=== PATIENT | male | born 1975 | race Caucasian/White ===

== ENCOUNTER 2018-05-31 06:45 | Emergency (ER) | payer SELFPAY ==
[2018-05-31 06:46] VITALS: BP 152/108; PULSE 72; RESP 24; TEMP 36.4; O2SAT 98; BMI 40.9
--- NOTE | 2018-05-31 08:27 | ED.VIS.GEN ---
History of Present Illness Chief Complaint: Numb/Ting Informant: Patient Onset: Weeks - 1 Context: Gradual Onset Timing: Continuous Quality: tingling/numb Location: BLE, worse on right Current Severity: Moderate Maximum Severity: Moderate Worsened by: nothing Relieved by: nothing Associated Symptoms: RLE weakness, cramped-up muscles yesterday w/ spasm temporarily Narrative: no back pain. no hx IVDU. no fevers. BP up, sometmes feels flushed; supposed to be on BP med, but stopped it sev mos ago. has the med at home. - Past Medical History (1) H/O gastric bypass Status: Chronic (2) HTN (hypertension) Status: Chronic Past Medical History - Allergies and Home Meds Allergies/Adverse Reactions: Allergies No Known Allergies Allergy (Verified 05/31/18 06:48) Primary Care Physician: NOT,DEFINED [NON-STAFF] - Smoking Status: Never smoker Review of Systems All systems negative except as indicated Genitourinary: Reports: - - low uop x several mos -- often goes 1x daily. no urinary retention sx. no bowel dysfunction. Musculoskeletal: Denies: Neck pain, Back pain Neurological: Reports: Weakness - RLE only, Parasthesia, Numbness - worst lateral prox right thigh, - - no sx in BUE or face. no speech issues.. Denies: Headache Endocrine: Denies: Polyuria, Polydipsia Physical Exam Vital Signs/Narrative: Vital Signs Temp Pulse Resp BP Pulse Ox 05/31/18 06:46 97.6 F L 72 24 H 152/108 H 98 General: Well nourished, Well developed Head: Normocephalic, Atraumatic Eyes: Perrl, EOMI ENT: Moist mucous membranes, No rhinorrhea Neck: Supple, Nontender Cardiovascular: Regular rate, Regular rhythm, No murmurs Respiratory: No distress, CTA bilaterally, Chest nontender Abdomen: Soft, Nontender, Nondistended, Normal bowel sounds Rectal: Deferred Back: Nontender, Normal Inspection. Negative for: CVA tenderness, Spinal tenderness Extremities: Nontender, No edema Skin: Normal color, No rash Neurological: Alert, Oriented x3, Cranial nerves II-XII grossly intact, Normal DTR - BUE. decreased DTR bilat patella and achilles. no clonus. downgoing toes., Parasthesia - grossly intact but decreased sens BLE, worse on right, Weakness - RLE 4/5 Psychological: Normal affect Diagnostic/Tx/Re-eval Clinical Impression(s) from Imaging Studies Lumbar Spine X-Ray 05/31/18 08:55 IMPRESSION: Degenerative changes of the spine, as detailed above. Electronically Signed: Seth James MD at 9:21 EDT Tel [phone], Service support , Laboratory Tests 05/31/18 05/31/18 05/31/18 08:35 08:35 09:32 WBC 5.8 RBC 5.15 Hgb 14.0 Hct 43.1 MCV 83.7 MCH 27.2 MCHC 32.5 RDW 14.6 RDW Differential 44.7 H Plt Count 193 MPV 10.2 Immature Gran % (Auto) 0.000 Neut % (Auto) 57.1 Lymph % (Auto) 30.2 [place] % (Auto) 10.5 H Eos % (Auto) 1.9 Baso % (Auto) 0.3 Absolute Neuts (auto) 3.3 Absolute Lymphs (auto) 1.75 Total Counted Not Reportable Sodium 140 Potassium 3.8 Chloride 103 Carbon Dioxide 31.0 Anion Gap 6 BUN 13 Creatinine 0.97 Estim Creat Clear Calc 118.57 Est GFR (MDRD) Af Amer 109 Est GFR (MDRD) Non-Af 90 BUN/Creatinine Ratio 13.4 Glucose 81 Calcium 9.0 Urine Color Yellow Urine Clarity Clear Urine pH 5.0 Ur Specific [place] 1.025 Urine Protein 30 H Urine Glucose (UA) Normal Urine Ketones 15 H Urine Occult Blood 10 H Urine Nitrite Positive H Urine Bilirubin 3 H Urine Urobilinogen 4 H Ur Leukocyte Esterase 100 H Urine RBC 0 SEEN Urine WBC 5-10 SEEN Ur Squamous Epith Cells 0-5 SEEN Urine Bacteria 2+ Urine Mucus 3+ - Medical Decision Making His symptoms and exam are more consistent with a peripheral neuropathy, but involving both lower extremities. He has no symptoms of cauda equina or conus medullaris syndrome. I obtained some lumbosacral spine x-rays, they do show significant degenerative changes from L4 down basically, it is possible this could explain some of this, but he will need MRI as an outpatient if his symptoms persist. His urinalysis shows significant infection signs, so that will be sent for culture and he will be treated with an antibiotic. He needs to follow-up. He understands this. ED Disposition - Plan for ED Patient: Disposition: Home or Assisted Living Chief Complaint: Lower Extremity Injury Diagnosis: Neuropathy involving both lower extremities, Acute lower urinary tract infection Instructions: ED Neuropathy Peripheral, ED UTI Cystitis Male Prescriptions: Smz/Tmp Ds [Bactrim Ds] 1 tab PO BID #14 tab Referrals: Doctor,Your [STAFF PHYSICIAN] - (your doctor's office -- call and make appt)
[2018-05-31 08:50] LABS: Absolute Lymphocyte Count 1.75 X10^3/ul (0.83-4.51); Absolute Neutrophil Count 3.3 X10^3/uL (2.0-7.7); Basophil# 0.02 X10^3/uL; Basophil% 0.3 % (0-1); Eosinophil# 0.11 X10^3/uL; Eosinophils% 1.9 % (0-5); Hematocrit 43.1 % (40-54); Lymphocyte # 1.75 X10^3/ul (4.0); Lymphocyte % 30.2 % (19-41); Mean Corp Hgb Conc 32.5 g/gl (32-36); Mean Corpuscular Hgb 27.2 pg (27.0-32.0); Mean Corpuscular Volume 83.7 fL (80-94); Mean Platelet Vol. 10.2 fl (6.2-12.0); Monocyte# 0.61 X10^3/uL; Monocyte% 10.5 % (0-10); Neutrophil % 57.1 % (47-70); Platelet Count 193 K/mm3 (150-450); RBC Distribution Width CV 14.6 % (11.6-14.6); RBC Distribution Width SD 44.7 fl (35.1-43.9); Red Blood Count 5.15 M/mm3 (4.6-6.2); White Blood Count 5.8 K/mm3 (4.4-11.0)
[2018-05-31 08:53] LABS: POSITIVE COUNT NO; POSITIVE DIFFERENTIAL NO; POSITIVE MORPHOLOGY NO
--- NOTE | 2018-05-31 08:55 | RAD_ITS ---
STUDY: X-RAY - LUMBAR SPINE REASON FOR EXAM: Male, 42 years old. Numbness and tingling in the left lower extremity. TECHNIQUE: 3 view(s) of the lumbar spine were obtained. COMPARISON: None FINDINGS: Normal lumbar lordosis. There is no substantial scoliosis. There is a normal alignment of the vertebrae. There is multilevel endplate spondylosis of the lumbar vertebrae. Moderate degree of disc space narrowing at the L3-L4, L4-L5 and L5-S1 levels. Facet joint osteoarthritis. The soft tissue structures are unremarkable. RAD/Lumbar Spine 2 or 3 Views IMPRESSION: Degenerative changes of the spine, as detailed above. Electronically Signed: Seth James MD at 9:21 EDT Tel [phone], Service support ,
[2018-05-31 09:14] LABS: Anion Gap 6 (5-15); BUN 13 mg/dL (7-18); BUN/Creat Ratio 13.4 RATIO (10-20); Chloride 103 mmol/L (98-107); Creatinine, Serum 0.97 mg/dL (0.70-1.30); EST Glomerular Filtration Rate 90 mL/min (>60); Est Glom Filt Rate - Afr Amer 109 mL/min (>60); Estimated Creatinine Clearance 118.57 ml/min; Glucose 81 mg/dL (74-106); Potassium 3.8 mmol/L (3.5-5.1); Sodium Level 140 mmol/L (136-145)
[2018-05-31 09:38] LABS: Red Blood Cells-Urine 0 SEEN /hpf (0-5)
[2018-05-31 09:46] LABS: Color, Urine Yellow (Yellow); Glucose, Dipstick Normal (Normal); Ketone-Dipstick 15 mg/dl (Negative); Leukocyte Esterase-Dipstick 100 /ul (Negative); Nitrite-Dipstick Positive (Negative); Occult Blood-Urine 10 /ul (Negative); Protein-Dipstick 30 mg/dl (Negative); Specific Gravity, Urine 1.025 (1.002-1.030); Urine Bilirubin Dipstick 3 mg/dL (Negative); Urine Clarity Clear (Clear); Urine Urobilinogen 4 mg/dl (Normal)
[2018-05-31 09:49] LABS: Bacteria 2+ /hpf (None Seen); Squamous Epithelial Cells - UA 0-5 SEEN /hpf (0-5); White Blood Cells 5-10 SEEN /hpf (0-5)
[2018-05-31 09:50] LABS: Mucous, Urine 3+ /hpf (<or=2+)
[2018-05-31 10:28] VITALS: BP 108/69; PULSE 84; RESP 16; O2SAT 98
== END 2018-05-31 10:29 | disposition home or self-care (01) ==
PROVIDERS: Emergency Provider Emergency Medicine
DX: G57.93 Unspecified mononeuropathy of bilateral lower limbs (principal); N39.0 Urinary tract infection, site not specified; I10 Essential (primary) hypertension
CPT/HCPCS: 72100; 80048; 81001; 85025; 87086; 87088; 99282; A4216

== ENCOUNTER 2021-02-11 11:11 | Emergency (ER) | payer MEDICAID, SELFPAY ==
[2021-02-11 11:13] VITALS: BP 136/80; PULSE 70; RESP 18; TEMP 36.8; O2SAT 98; BMI 33.1
--- NOTE | 2021-02-11 11:35 | RAD_ITS ---
STUDY: X-RAY - LEFT SHOULDER REASON FOR EXAM: Male, 45 years old. Injury/Pain TECHNIQUE: 4 view(s) of the shoulder. COMPARISON: None. FINDINGS: No acute fracture, dislocation or osseous destruction. Mild glenohumeral and acromioclavicular joint arthrosis. No significant soft tissue swelling. RAD/Shoulder min 2 Views IMPRESSION: Left shoulder intact Left shoulder mild osteoarthritis Electronically Signed: Nick Tran DO at 12:24 EDT Tel , Service support ,
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
--- NOTE | 2021-02-11 11:45 | RAD_ITS ---
STUDY: X-RAY - LEFT ELBOW REASON FOR EXAM: Male, 45 years old. Injury/Pain TECHNIQUE: 3 view(s) of the elbow. COMPARISON: None. FINDINGS: No acute fracture, dislocation or osseous destruction. Mild ulnotrochlear joint arthrosis. Medial calcification/spurring. Olecranon spur. Mild soft tissue swelling. RAD/Elbow min 3 Views IMPRESSION: Left elbow intact Mild degenerative changes, as above Mild soft tissue swelling Electronically Signed: Nick Tran DO at 12:21 EDT Tel , Service support ,
[2021-02-11 13:29] VITALS: PULSE 91; RESP 16; O2SAT 97
--- NOTE | 2021-02-11 13:29 | ED.RN ---
THIS NURSE REVIEWED D/C INSTRUCTIONS WITH PT. PT VERBALIZED UNDERSTANDING OF INSTRUCTIONS. PT DENIES FURTHER NEEDS OR QUESTIONS AT THIS TIME. PT AMBULATES FROM ROOM ON OWN WITHOUT ASSISTANCE FROM STAFF
== END 2021-02-11 13:30 | disposition home or self-care (01) ==
PROVIDERS: Emergency Provider Emergency Medicine
DX: S46.912A Strain of unspecified muscle, fascia and tendon at shoulder and upper arm level, left arm, initial encounter (principal); S53.402A Unspecified sprain of left elbow, initial encounter; X58.XXXA Exposure to other specified factors, initial encounter
CPT/HCPCS: 73030; 73080; 99282

== ENCOUNTER 2023-06-20 20:16 | Emergency (ER) | payer MEDICAID, SELFPAY ==
[2023-06-20 20:18] VITALS: BP 138/85; PULSE 98; RESP 18; TEMP 37.7; O2SAT 96; BMI 32.8
[2023-06-20] MEDS: Ketorolac 60 MG/2 ML Vial IM (21:45)
--- NOTE | 2023-06-20 21:50 | RAD_ITS ---
STUDY: X-RAY - UNILATERAL RIBS ( LEFT ) WITH CHEST REASON FOR EXAM: Male, 47 years old. pain, cough TECHNIQUE - RIBS: 5 view(s) of the ribs. TECHNIQUE - CHEST: Single AP portable view of the chest. COMPARISON: None. FINDINGS - RIBS: Normal visualized ribs without a demonstrated fracture. FINDINGS - CHEST: The lungs are clear and expanded. There is no demonstrated pleural abnormality. Normal size heart. Normal mediastinum and jeanne. Normal visualized pulmonary arteries. Normal visualized aortic arch and descending thoracic aorta. Normal visualized thoracic spine. Normal visualized ribs, clavicles, and shoulders. There is no demonstrated abnormality of the visualized soft tissue structures of the upper abdomen. RAD/Ribs Uni Min 3V w/PA Chest IMPRESSION: RIBS: Normal x-ray examination of the ribs. CHEST: Normal x-ray examination of the chest. Electronically Signed: Merlin Baca MD at 22:09 EDT ,
[2023-06-20 21:54] LABS: Red Blood Cells-Urine 0 SEEN /hpf (0-5); Squamous Epithelial Cells - UA 0 SEEN /hpf (0-5)
[2023-06-20 21:55] LABS: Bacteria 0 SEEN /hpf (None Seen); Mucous, Urine 0 SEEN /hpf (<or=2+)
[2023-06-20 22:01] LABS: Color, Urine Yellow (Yellow); Glucose, Dipstick Normal (Normal); Ketone-Dipstick Negative (Negative); Leukocyte Esterase-Dipstick 25 /ul (Negative); Nitrite-Dipstick Negative (Negative); Occult Blood-Urine Negative /ul (Negative); Protein-Dipstick Negative (Negative); Specific Gravity, Urine 1.005 (1.002-1.030); Urine Bilirubin Dipstick Negative (Negative); Urine Clarity Clear (Clear); Urine Urobilinogen Normal (Normal)
[2023-06-20 22:15] LABS: White Blood Cells 0-5 SEEN /hpf (0-5)
--- NOTE | 2023-06-20 22:32 | ED.VIS.BACK ---
HPI History of Present Illness Chief Complaint: Back Informant: patient Narrative Narrative: Patient has had a cough for 3 to 4 days, no dyspnea or fevers, but it has been productive on occasion. Today while sitting at rest, suddenly started having pain in his low back hurts to move and to take deep breaths and especially to cough. On the left side. No urinary symptoms. [facility] Medical History (Updated 06/20/23 @ 23:[address] Glenn Zhou MD) HTN (hypertension) Home Medications prednisone 20 mg tablet 60 mg (3 x 20 mg) PO DAILY #15 TABLETS 02/11/21 [Rx Last Taken Unknown] Allergy/AdvReac Type Severity Reaction Status Date / Time No Known Allergies Allergy Verified 06/20/23 20:17 Surgical History (Updated 06/20/23 @ 23:[address] Glenn Zhou MD) H/O bariatric surgery H/O gastric bypass Social History Smoking Status: Never smoker ROS [facility] ED Constitutional Constitutional ED: Denies chills or fever(s) ENT ENT ED: Reports nasal congestion Cardiovascular Cardiovascular: Denies chest pain Respiratory/Chest Respiratory/Chest: Reports cough; Denies dyspnea or dyspnea on exertion Gastrointestinal Gastrointestinal: Denies abdominal pain, diarrhea, nausea or vomiting Genitourinary Genitourinary ED: Denies dysuria, hematuria or urinary frequency Musculoskeletal Musculoskeletal: Reports back pain; Denies myalgias or neck pain EXAM Physical Exam Const Vital Signs: 06/20/23 20:18 Temperature 99.8 F H Temperature Source Temporal Pulse Rate 98 Respiratory Rate 18 Blood Pressure 138/85 H Blood Pressure Mean 102 Pulse Ox 96 Oxygen Delivery Method Room Air Positive well nourished and well developed Constitutional Narrative: Well-appearing in no distress General Appearance ED: well developed and NAD HEENT Reports moist mucous membranes Resp normal respiratory effort and clear to auscultation bilaterally Cardio regular rate, regular rhythm and no murmurs Rate: Negative for tachycardic GI normal to inspection, nondistended, normoactive bowel sounds, soft to palpation and non-tender Back/Spine normal to inspection Back/Spine Narrative: Tender with superficial palpation at the left lower ribs #11 and 10, right at the CVA. No rash. Extremity normal to inspection and no clubbing, cyanosis or edema Neuro oriented x3 and no sensory deficits noted Motor Exam: strength 5/5 throughout Psych mental status grossly normal Skin no rashes or lesions noted and no wounds MDM MDM MDM Narrative Medical decision making narrative: 5 view x-ray series of the left rib cage including a PA chest normal my interpretation with no fracture or infiltrate. Radiology in agreement. I did urinalysis to ensure this was not renal related, it is normal, reassuring. He was given a dose of IM Toradol, this did help. Reassured suspect musculoskeletal possibly intercostal strain, supportive care advised not prescribing him NSAIDs because he had gastric bypass and I am not prescribing him narcotics because I do not think he needs them. Lab Data Attestation: I reviewed the patient's lab results. Labs: Laboratory Results - last 24 hr 06/20/23 21:40 Urine Color Yellow Urine Clarity Clear Urine pH 7.0 Ur Specific [place] 1.005 Urine Protein Negative Urine Glucose (UA) Normal Urine Ketones Negative Urine Occult Blood Negative Urine Nitrite Negative Urine Bilirubin Negative Urine Urobilinogen Normal Ur Leukocyte Esterase 25 H Urine RBC 0 SEEN Urine WBC 0-5 SEEN Ur Squamous Epith Cells 0 SEEN Urine Bacteria 0 SEEN Urine Mucus 0 SEEN Radiography Diagnostic Testing: Clinical Impression(s) from Imaging Studies Ribs w/Chest X-Ray 06/20/23 21:50 IMPRESSION: RIBS: Normal x-ray examination of the ribs. CHEST: Normal x-ray examination of the chest. Electronically Signed: Merlin Baca MD at 22:09 EDT Reading Location ID and State: [facility] / [place] , Service support , Discharge Plan Triage Chief Complaint: Back ED Provider: Glenn Zhou Dx/Rx/DC Orders Clinical Impression: Intercostal muscle strain, Viral URI with cough Instructions: Treating?Strains and Sprains Prescriptions: No Action prednisone 20 MG tablet 60 mg PO DAILY Qty: 15 0RF Primary Care Provider: Care Physician,No Primary Referrals: Doctor,Your [Non-Staff] - 1 Week if not improving Disposition Disposition: Home, Self Care Discharge Date/Time: 06/20/23 22:44
== END 2023-06-20 22:44 | disposition home or self-care (01) ==
PROVIDERS: Emergency Provider Emergency Medicine; Visit Provider Emergency Medicine
DX: J06.9 Acute upper respiratory infection, unspecified (principal); S29.011A Strain of muscle and tendon of front wall of thorax, initial encounter; X58.XXXA Exposure to other specified factors, initial encounter
CPT/HCPCS: 71101; 81001; 96372; 99282

== ENCOUNTER 2023-07-28 08:21 | Inpatient (IN) | payer MEDICAID, SELFPAY ==
[2023-07-28 08:22] VITALS: BP 130/74; PULSE 100; RESP 20; TEMP 35.8; O2SAT 99; BMI 35.1
--- NOTE | 2023-07-28 08:37 | EX.ED.DYSGE1 ---
HPI History of Present Illness Chief Complaint: Substance Abuse Informant: patient Narrative Narrative: 47-year-old male presenting to the emergency room requesting detox from alcohol. Patient states that he drinks 8-12 tall boys per day. He works nights that are to [employer]. 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 He reports that he has been drinking since the age of 13. He did not drink for about a year and a half while he was in nursing home. He is currently on probation and recently tested positive for alcohol. He has an upcoming court hearing on 16 August for probation violation. He recognizes that the implications of his drinking in terms of going back to nursing home and losing his job. He has been taking new day classes and after speaking with his counselor his p.o. he is decided to seek detox. He notes that after work he tends to have shakes and some sweats. This resolves with alcohol. [facility] Medical History HTN (hypertension) Home Medications prednisone 20 mg tablet 60 mg (3 x 20 mg) PO DAILY #15 TABLETS 02/11/21 [Rx Last Taken Unknown] Allergy/AdvReac Type Severity Reaction Status Date / Time No Known Allergies Allergy Verified 06/20/23 20:17 Surgical History H/O bariatric surgery H/O gastric bypass Social History (Updated 07/28/23 @ 08:[address] Navarro Washburn DO) Smoking Status: Never smoker Smokeless tobacco user: chewing tobacco alcohol intake: current alcohol intake frequency: 3 or more drinks per day Alcohol type: beer substance use type: does not use ROS ROS ED Constitutional Constitutional ED: Denies chills or weight loss Eyes Eyes: Denies change in vision or diplopia ENT ENT ED: Denies ear pain, rhinorrhea or sore throat Cardiovascular Cardiovascular: Denies chest pain, orthopnea, palpitations or racing heartbeat Respiratory/Chest Respiratory/Chest: Denies cough, dyspnea or orthopnea Gastrointestinal Gastrointestinal: Denies abdominal pain, diarrhea, nausea or vomiting Genitourinary Genitourinary ED: Denies dysuria, hematuria or urinary frequency Musculoskeletal Musculoskeletal: Denies arthralgias or myalgias Integumentary Denies abscess or rash Neurologic Neurologic: Denies headache(s) or weakness Psychiatric Psychiatric: Reports anxiety; Denies depression, suicidal ideation or suicidal thoughts Endocrine Endocrinology: Denies polydipsia, polyphagia or polyuria Allergic/Immunologic Allergic/Immunologic ED: Denies mouth swelling, tongue swelling or urticaria EXAM Physical Exam Const Vital Signs: 07/28/23 08:22 Temperature 96.5 F L Temperature Source Temporal Pulse Rate 100 Respiratory Rate 20 H Blood Pressure 130/74 H Blood Pressure Mean 92 Pulse Ox 99 Oxygen Delivery Method Room Air Positive well nourished and well developed General Appearance ED: well developed HEENT Reports normocephalic, head/scalp atraumatic and moist mucous membranes Eyes PERRL and EOMs intact bilaterally Neck no lymphadenopathy, supple and no JVD Resp normal respiratory effort and clear to auscultation bilaterally Cardio regular rate, regular rhythm and no murmurs GI normal to inspection, nondistended, normoactive bowel sounds and non-tender Palpation: soft Back/Spine no CVA tenderness and normal ROM Extremity normal to inspection General Extremety ED: Negative for edema General Extremity: Negative for edema Neuro oriented x3 and CN's II-XII intact bilaterally Sensorium / Orientation: alert Motor Exam: strength 5/5 throughout Psych mental status grossly normal Mood & Affect: Negative for depressed or tearful Skin no rashes or lesions noted and no wounds MDM MDM MDM Narrative Medical decision making narrative: Basic blood work obtained. Toxic she is now except for a 171. Liver panel normal. Platelet count 172. I will speak with the hospitalist regarding admission Lab Data Attestation: I reviewed the patient's lab results. Labs: Laboratory Results - last 24 hr 07/28/23 07/28/23 08:50 08:55 WBC 6.3 RBC 5.11 Hgb 14.9 Hct 45.8 MCV 89.6 MCH 29.2 MCHC 32.5 RDW Std Deviation 47.2 H RDW Coeff of [place] 14.4 Plt Count 172 MPV 8.9 Immature Gran % (Auto) 0.300 Neut % (Auto) 65.2 Lymph % (Auto) 23.0 [place] % (Auto) 8.9 Eos % (Auto) 2.1 Baso % (Auto) 0.5 Absolute Neuts (auto) 4.1 Absolute Lymphs (auto) 1.45 Nucleated RBC % 0 PT 13.1 INR 1.0 Sodium 138 Potassium 4.0 Chloride 104 Carbon Dioxide 25.0 Anion Gap 9 BUN 12 Creatinine 0.87 Estim Creat Clear Calc 128.87 Est GFR (MDRD) Af Amer 121 Est GFR (MDRD) Non-Af 100 BUN/Creatinine Ratio 13.8 Glucose 89 Calcium 8.6 Total Bilirubin 0.40 AST 17 ALT 10 L Alkaline Phosphatase 73 Total Protein 7.0 Albumin 3.4 Globulin 3.6 Albumin/Globulin Ratio 0.9 Urine Opiates Screen NEGATIVE Urine Methadone Screen NEGATIVE Ur Barbiturates Screen NEGATIVE Ur Phencyclidine Scrn NEGATIVE Ur Amphetamines Screen NEGATIVE MDMA (Ecstasy) Screen NEGATIVE U Benzodiazepines Scrn NEGATIVE Urine Cocaine Screen NEGATIVE U Cannabinoids Screen NEGATIVE Ur Drug Screen Comment Ethyl Alcohol 107.0 Discharge Plan Dx/Rx/DC Orders Clinical Impression: Alcohol abuse Disposition Disposition: Acute Care Hospital [facility]
[2023-07-28 09:00] LABS: Absolute Lymphocyte Count 1.45 X10^3/uL (0.83-4.51); Absolute Neutrophil Count 4.1 X10^3/uL (2.0-7.7); Basophil# 0.03 X10^3/uL; Basophil% 0.5 % (0-1); Eosinophil# 0.13 X10^3/uL; Eosinophils% 2.1 % (0-5); Hematocrit 45.8 % (40-54); Hemoglobin 14.9 g/dL (13.0-16.5); Lymphocyte # 1.45 X10^3/ul (0.83-4.51); Mean Corp Hgb Conc 32.5 g/dL (32-36); Mean Corpuscular Hgb 29.2 pg (27.0-32.0); Mean Corpuscular Volume 89.6 fL (80-94); Mean Platelet Vol. 8.9 fl (6.2-12.0); Monocyte# 0.56 X10^3/uL; Monocyte% 8.9 % (0-10); NRBC Flagged by Analyzer 0 % (0-5); Neutrophil # 4.11 X10^3/uL (2.7-7.7); Neutrophil % 65.2 % (47-70); Platelet Count 172 K/mm3 (150-450); RBC Distribution Width CV 14.4 % (11.6-14.6); RBC Distribution Width SD 47.2 fl (35.1-43.9); Red Blood Count 5.11 M/mm3 (4.6-6.2); White Blood Count 6.3 K/mm3 (4.4-11.0)
[2023-07-28 09:11] LABS: Prothrombin Time (Protime)PT. 13.1 SECONDS (11.7-14.9)
[2023-07-28 09:18] LABS: ALB/GLOB Ratio 0.9 RATIO (0.9-2.4); AST(SGOT) 17 U/L (15-37); Alanine Aminotransfer ALT/SGPT 10 U/L (16-61); Albumin, Serum 3.4 g/dL (3.2-5.0); Alkaline Phosphatase 73 U/L (45-117); Anion Gap 9 (5-15); BUN 12 mg/dL (7-18); BUN/Creat Ratio 13.8 RATIO (10-20); Calcium,Total 8.6 mg/dL (8.5-10.1); Chloride 104 mmol/L (98-107); Creatinine, Serum 0.87 mg/dL (0.70-1.30); EST Glomerular Filtration Rate 100 mL/min (>60); Est Glom Filt Rate - Afr Amer 121 mL/min (>60); Estimated Creatinine Clearance 128.87 ml/min; Globulin 3.6 g/dL (2.2-4.2); Glucose 89 mg/dL (74-106); Sodium Level 138 mmol/L (136-145)
[2023-07-28 09:19] LABS: Amphetamine Urine VISTA NEGATIVE (<1000 ng/mL); Barbiturate Urine VISTA NEGATIVE (< 200 ng/mL); Benzodiazepine Urine VISTA NEGATIVE (< 200 ng/mL); Cocaine Urine VISTA NEGATIVE (< 300 ng/mL); Ecstacy Urine VISTA NEGATIVE (< 500 ng/mL); Methadone Urine VISTA NEGATIVE (< 300 ng/mL); PCP Urine VISTA NEGATIVE (< 25 ng/mL); THC Urine VISTA NEGATIVE (< 50 ng/mL); Vista UDS pH Range 5
[2023-07-28 10:40] VITALS: BP 148/78; PULSE 78; RESP 16; TEMP 36.4; O2SAT 99
[2023-07-28 13:31] VITALS: BMI 35.1
[2023-07-28 13:32] VITALS: BP 139/89; PULSE 71; RESP 16; TEMP 36.4; O2SAT 98
[2023-07-28] MEDS: Phenobarbital 32.4 MG Tablet 64.8 MG PO ×3 (13:57→20:54)
[2023-07-28 17:31] VITALS: BP 138/78; PULSE 68; RESP 12; TEMP 36.5; O2SAT 98
[2023-07-28] MEDS: traZODone 100 MG Tablet PO (20:54)
[2023-07-28 21:00] VITALS: BP 136/94; PULSE 62; RESP 18; TEMP 36.1; O2SAT 97
[2023-07-29] MEDS: Phenobarbital 32.4 MG Tablet 64.8 MG PO ×6 (02:14→20:15)
[2023-07-29 02:31] VITALS: BP 108/68; PULSE 62; RESP 18; TEMP 36.6; O2SAT 99
--- NOTE | 2023-07-29 07:58 | HP.PCM.HOS_ITS ---
HPI - General General Date of Admission: 07/28/23 Date of Service: 07/28/23 Chief Complaint: alcohol withdrawal. HPI Narrative IMAN BLEVINS, is a 47 M who presents seeking treatment for alcohol withdrawal. Patient has been today drinking anywhere from 8-12 tall boys. States he goes to work and at the end of his shift he has become tremulous that resolves when he goes back home and drinks again. Seeking treatment for alcohol withdrawal. Patient's last drink was the morning prior to presenting to the hospital. [facility] Medical History HTN (hypertension) Home Medications NK 07/28/23 [History Last Taken Unknown] Allergy/AdvReac Type Severity Reaction Status Date / Time No Known Allergies Allergy Verified 06/20/23 20:17 Surgical History H/O bariatric surgery H/O gastric bypass Social History current gender identity: male Smoking Status: Never smoker Smokeless tobacco user: chewing tobacco alcohol intake: current alcohol intake frequency: 3 or more drinks per day Alcohol type: beer substance use type: does not use ROS ROS Narrative All review systems are otherwise negative except for as mentioned above in the HPI. Vital Signs Vital Signs Vital Signs: 07/28/23 08:22 07/28/23 10:40 07/28/23 13:32 Temperature 35.8 C L 36.4 C L 36.4 C L Temperature Source Temporal Oral Temporal Pulse Rate 100 78 71 Respiratory Rate 20 H 16 16 Respiratory Effort Blood Pressure 130/74 H 148/78 H 139/89 H Blood Pressure Mean 92 101 105 Blood Pressure Source Monitor Blood Pressure Position Sitting Blood Pressure Location Left Arm Pulse Ox 99 99 98 Oxygen Delivery Method Room Air Room Air Room Air 07/28/23 17:31 07/28/23 21:00 07/28/23 22:00 Temperature 36.5 C L 36.1 C L Temperature Source Oral Temporal Pulse Rate 68 62 Respiratory Rate 12 18 Respiratory Effort Normal Non-Labored Blood Pressure 138/78 H 136/94 H Blood Pressure Mean 98 108 Blood Pressure Source Monitor Blood Pressure Position Sitting Blood Pressure Location Right Arm Pulse Ox 98 97 Oxygen Delivery Method Room Air Room Air 07/29/23 02:31 Temperature 36.6 C Temperature Source Temporal Pulse Rate 62 Respiratory Rate 18 Respiratory Effort Blood Pressure 108/68 Blood Pressure Mean 81 Blood Pressure Source Blood Pressure Position Blood Pressure Location Pulse Ox 99 Oxygen Delivery Method Room Air Weight Weight: 130.907 kg Body Mass Index (BMI) 35.1 Physical Exam Const alert and no apparent distress Resp normal respiratory effort, no retractions, no use of accessory muscles and clear to auscultation bilaterally Cardio regular rate, regular rhythm, S1 normal heart sound and S2 normal heart sound GI normal to inspection, nondistended, normoactive bowel sounds, soft to palpation, non-tender and non-distended Extremity normal to inspection Neuro Sensorium / Orientation: awake Results Lab / Micro Data 07/28/23 08:50 07/28/23 08:50 Labs: Laboratory Results - last 24 hr 07/28/23 08:50: WBC 6.3, RBC 5.11, Hgb 14.9, Hct 45.8, MCV 89.6, MCH 29.2, MCHC 32.5, RDW Std Deviation 47.2 H, RDW Coeff of Carmelina 14.4, Plt Count 172, MPV 8.9, Immature Gran % (Auto) 0.300, Neut % (Auto) 65.2, Lymph % (Auto) 23.0, [place] % (Auto) 8.9, Eos % (Auto) 2.1, Baso % (Auto) 0.5, Absolute Neuts (auto) 4.1, Absolute Lymphs (auto) 1.45, Nucleated RBC % 0, PT 13.1, INR 1.0, Sodium 138, Potassium 4.0, Chloride 104, Carbon Dioxide 25.0, Anion Gap 9, BUN 12, Creatinine 0.87, Estim Creat Clear Calc 128.87, Est GFR (MDRD) Af Amer 121, Est GFR (MDRD) Non-Af 100, BUN/Creatinine Ratio 13.8, Glucose 89, Calcium 8.6, Total Bilirubin 0.40, AST 17, ALT 10 L, Alkaline Phosphatase 73, Total Protein 7.0, Albumin 3.4, Globulin 3.6, Albumin/Globulin Ratio 0.9, Ethyl Alcohol 107.0 07/28/23 08:55: Urine Opiates Screen NEGATIVE, Urine Methadone Screen NEGATIVE, Ur Barbiturates Screen NEGATIVE, Ur Phencyclidine Scrn NEGATIVE, Ur Amphetamines Screen NEGATIVE, MDMA (Ecstasy) Screen NEGATIVE, U Benzodiazepines Scrn NEGATIVE, Urine Cocaine Screen NEGATIVE, U Cannabinoids Screen NEGATIVE, Ur Drug Screen Comment Assessment & Plan Assessment/Plan (1) Alcohol abuse: PLAN: Seeking treatment for alcohol withdrawal. Phenobarbital taper when warranted Adjunctive mgmt for withdrawal symptoms PLAN: Plan VTE prophylaxis: low risk. Not indicated. Charges/Coding Visit Charges Inpatient E&M: 83913 Init Hosp L2
--- NOTE | 2023-07-29 08:03 | PCM.PN.HOSP ---
Reason for Visit Reason for Visit: Diagnoses Alcohol abuse, uncomplicated (07/28/23) Subjective Subjective Feeling ok. Objective Data Objective Data Vital Signs: Vital Signs Temp Pulse Resp BP Pulse Ox O2 Del Method 36.6 C 62 18 108/68 99 Room Air 07/29/23 02:31 07/29/23 02:31 07/29/23 02:31 07/29/23 02:31 07/29/23 02:31 07/29/23 02:31 Oxygen Delivery Method Room Air Weight: 130.907 kg Body Mass Index (BMI) 35.1 Intake & Output: Intake and Output for Last 24 Hours 07/27/23 07/28/23 07/29/23 23:59 23:59 23:59 Intake Total 600 / 600 600 / 600 Balance 600 / 600 600 / 600 Lab / Micro Data 07/28/23 08:50 07/28/23 08:50 Labs: Laboratory Results - last 24 hr 07/28/23 08:50: WBC 6.3, RBC 5.11, Hgb 14.9, Hct 45.8, MCV 89.6, MCH 29.2, MCHC 32.5, RDW Std Deviation 47.2 H, RDW Coeff of Carmelina 14.4, Plt Count 172, MPV 8.9, Immature Gran % (Auto) 0.300, Neut % (Auto) 65.2, Lymph % (Auto) 23.0, [place] % (Auto) 8.9, Eos % (Auto) 2.1, Baso % (Auto) 0.5, Absolute Neuts (auto) 4.1, Absolute Lymphs (auto) 1.45, Nucleated RBC % 0, PT 13.1, INR 1.0, Sodium 138, Potassium 4.0, Chloride 104, Carbon Dioxide 25.0, Anion Gap 9, BUN 12, Creatinine 0.87, Estim Creat Clear Calc 128.87, Est GFR (MDRD) Af Amer 121, Est GFR (MDRD) Non-Af 100, BUN/Creatinine Ratio 13.8, Glucose 89, Calcium 8.6, Total Bilirubin 0.40, AST 17, ALT 10 L, Alkaline Phosphatase 73, Total Protein 7.0, Albumin 3.4, Globulin 3.6, Albumin/Globulin Ratio 0.9, Ethyl Alcohol 107.0 07/28/23 08:55: Urine Opiates Screen NEGATIVE, Urine Methadone Screen NEGATIVE, Ur Barbiturates Screen NEGATIVE, Ur Phencyclidine Scrn NEGATIVE, Ur Amphetamines Screen NEGATIVE, MDMA (Ecstasy) Screen NEGATIVE, U Benzodiazepines Scrn NEGATIVE, Urine Cocaine Screen NEGATIVE, U Cannabinoids Screen NEGATIVE, Ur Drug Screen Comment Physical Exam Const alert and no apparent distress HEENT head/scalp atraumatic Neuro Sensorium / Orientation: awake and alert Psych affect normal Assessment & Plan Assessment/Plan (1) Alcohol abuse: PLAN: Phenobarbital taper initiated Adjunctive mgmt for withdrawal symptoms Monitor at least 1 more day prior to discharge. PLAN: Plan VTE prophylaxis: low risk. Not indicated. Charges/Coding Visit Charges Inpatient E&M: 86989 Subs Hosp L1
[2023-07-29 08:30] VITALS: BP 115/68; PULSE 60; RESP 16; TEMP 36.4; O2SAT 99
[2023-07-29] MEDS: Folic Acid 1 MG Tablet PO (08:52)
[2023-07-29] MEDS: Thiamine Hydrochloride 100 MG Tablet PO (08:52)
--- NOTE | 2023-07-29 14:02 | ADDICTION ---
Pt was met with to complete RAMP assessment, ASAM, Mental Status Exam, Audit, Dudit, ALE, and Discharge Plan. Pt presents as a 47 yr old M [facility] d/t alcohol w/d, pt's reporting upwards of 10-12 24oz drinks a day. Pt reports he has been struggling with alcohol use since age 13 and recently experiencing intermittent bouts of sobriety ever since he was released from [facility]. Pt reports he has been on probation in [facility] and court ordered to [facility] outpatient programming. Pt reports he has been unable to stop drinking despite attending IOP for three hours a day, four days a week. Pt is facing a [facility] sentence if he violates probation again with a positive UDS for alcohol. Pt is at high risk of relapse w/out Ix. Pt was encouraged to explore residential tx d/t the severity of his risk factors and mh sxs. Pt declined residential at this time but states he will stay open minded about it if he continues to struggle w/sobriety. Pt was provided resources and contact info for residential tx and local twelve step meetings. Pt's DISCHARGE PLAN is to return home to [facility] where he lives with his sister and brother in law, family to transport, and pt is scheduled to follow up with [facility] and counseling on Monday08/01/23. Pt was encouraged to attend twelve step meetings and to seek peer support services. Pt was encouraged to speak with 'Dr. Law' at [facility] about the severity and intensity of his depressive sxs because pt reports that he is using alcohol to cope with depression, trauma hx, and unresolved grief.
[2023-07-29 14:30] VITALS: BP 119/65; PULSE 92; RESP 16; TEMP 36.7; O2SAT 99
[2023-07-29 20:17] VITALS: BP 143/71; PULSE 83; RESP 18; TEMP 36.6; O2SAT 98
[2023-07-29] MEDS: traZODone 100 MG Tablet PO (20:19)
[2023-07-30] MEDS: Phenobarbital 32.4 MG Tablet 64.8 MG PO ×3 (00:11→08:54)
[2023-07-30 02:00] VITALS: BP 118/62; PULSE 70; RESP 18; TEMP 36.7; O2SAT 100
--- NOTE | 2023-07-30 08:27 | PCM.PN.HOSP ---
Reason for Visit Reason for Visit: Diagnoses Alcohol abuse, uncomplicated (07/28/23) Subjective Subjective No events overnight. Feels well. Objective Data Objective Data Vital Signs: Vital Signs Temp Pulse Resp BP Pulse Ox O2 Del Method 36.7 C 70 18 118/62 100 Room Air 07/30/23 02:00 07/30/23 02:00 07/30/23 02:00 07/30/23 02:00 07/30/23 02:00 07/30/23 02:00 Oxygen Delivery Method Room Air Weight: 130.907 kg Body Mass Index (BMI) 35.1 Intake & Output: Intake and Output for Last 24 Hours 07/28/23 07/29/23 07/30/23 23:59 23:59 23:59 Intake Total 600 / 600 600 / 1200 600 / 600 Balance 600 / 600 600 / 1200 600 / 600 Lab / Micro Data 07/28/23 08:50 07/28/23 08:50 Physical Exam Const alert and no apparent distress HEENT head/scalp atraumatic and moist oral mucous membranes Neuro Sensorium / Orientation: awake and alert Psych affect normal Assessment & Plan Assessment/Plan (1) Alcohol abuse: PLAN: Phenobarbital taper initiated Adjunctive mgmt for withdrawal symptoms PLAN: Plan VTE prophylaxis: low risk. Not indicated.
[2023-07-30] MEDS: Thiamine Hydrochloride 100 MG Tablet PO (08:51)
[2023-07-30] MEDS: Folic Acid 1 MG Tablet PO (08:51)
[2023-07-30 09:00] VITALS: BP 141/81; PULSE 80; RESP 18; TEMP 36.8; O2SAT 98
--- NOTE | 2023-07-30 10:54 | PCM.DC.SUM ---
Providers Date of Admission: 07/28/23 Primary Care Physician: Jacqueline Primary Care Phys Reason For Visit: ALCOHOL WITHDRAWAL Diagnosis Discharge Diagnosis (1) Alcohol abuse: Status: Acute Code(s): F10.10 - Alcohol abuse, uncomplicated Plan: Phenobarbital taper initiated Adjunctive mgmt for withdrawal symptoms Plan VTE prophylaxis: low risk. Not indicated. Medications at Discharge Home Medications multivitamin 1 tab PO DAILY #30 tabs 07/30/23 Hospital Course Operations None Procedures None Weight / BMI Weight Weight: 130.907 kg Body Mass Index (BMI) 35.1 ABG / Lab / Microbiology Data 07/28/23 08:50 07/28/23 08:50 D/C Instructions Discharge Diet: No restrictions Meaningful Use Info Meaningful Use Diagnoses (Choose all that apply): None applicable Discharge Plan Admission Admit Date/Time: 07/28/23 09:47 Primary Reason for Your Visit: alcohol withdrawal Attending Provider: Nick Fam Primary Care Provider: Belen Lopez,Jacqueline Primary Instructions Additional Instructions / Restrictions: Follow up [facility]. Discharge Orders/Prescriptions Prescriptions: New multivitamin Tablet 1 tab PO DAILY Qty: 30 0RF Referrals / Follow Up: Care Physician,No Primary [Primary Care Provider] - Disposition Disposition (needs filled in before D/C Order can be placed): Home, Self Care Charges/Coding Visit Charges Inpatient E&M: 04500 Disch Hosp
[2023-07-30 11:48] VITALS: BP 116/79; PULSE 55; RESP 18; TEMP 36.8; O2SAT 98
== END 2023-07-30 11:50 | disposition home or self-care (01) | DRG 775 ==
LOC: ED 08:59 → PCU 09:57
PROVIDERS: Emergency Provider Emergency Medicine
DX: F10.139 Alcohol abuse with withdrawal, unspecified (principal); F17.220 Nicotine dependence, chewing tobacco, uncomplicated; Y90.5 Blood alcohol level of 100-119 mg/100 ml
CPT/HCPCS: 80053; 80307; 82077; 85025; 85610; 99283

== ENCOUNTER 2023-12-06 11:45 | Emergency (ER) | payer MEDICAID, SELFPAY ==
[2023-12-06 11:46] VITALS: BP 129/76; PULSE 96; RESP 18; TEMP 35.6; O2SAT 98; BMI 34.9
[2023-12-06 12:06] LABS: Mucous, Urine 0 SEEN /hpf (<or=2+); Red Blood Cells-Urine 0 SEEN /hpf (0-5)
[2023-12-06 12:10] LABS: Color, Urine Straw (Yellow); Glucose, Dipstick Normal (Normal); Ketone-Dipstick Negative (Negative); Leukocyte Esterase-Dipstick Negative /ul (Negative); Nitrite-Dipstick Negative (Negative); Occult Blood-Urine Negative /ul (Negative); Protein-Dipstick Negative (Negative); Specific Gravity, Urine 1.005 (1.002-1.030); Urine Bilirubin Dipstick Negative (Negative); Urine Clarity Clear (Clear); Urine Urobilinogen Normal (Normal); Urine pH 6.5 (5.0 - 8.0)
[2023-12-06 12:16] LABS: Bacteria RARE /hpf (None Seen); Squamous Epithelial Cells - UA 0-5 SEEN /hpf (0-5); White Blood Cells 0-5 SEEN /hpf (0-5)
--- NOTE | 2023-12-06 12:33 | US_ITS ---
STUDY: SCROTUM ULTRASOUND REASON FOR EXAM: Male, 48 years old. Right sided soreness and swelling TECHNIQUE: Ultrasound evaluation of the scrotum was performed with color Doppler and static hernández-scale imaging. COMPARISON: None. FINDINGS: RIGHT TESTICLE INTRATESTICULAR: There is a normal size of the right testicle. The right testicle measures 3 cm x 2.1 cm x 2 cm. There is a homogenous echotexture. There is normal arterial and normal venous vascularity. There is no demonstrated right testicular mass or cyst. EXTRATESTICULAR: The epididymis is normal in size. The epididymis head measures 0.9 cm x 0.9 cm x 0.8 cm. There is increased (hyperemic) vascularity of the epididymis. There is no demonstrated epididymal cystic structure. There is a moderate size hydrocele. There is no demonstrated varicocele. There is no demonstrated extratesticular mass or cyst. LEFT TESTICLE INTRATESTICULAR: There is a normal size of the left testicle. The left testicle measures 3.6 cm x 2.4 cm x 1.5 cm. There is a homogenous echotexture. There is normal arterial and normal venous vascularity. There is no demonstrated left testicular mass or cyst. EXTRATESTICULAR: The epididymis is normal in size. The epididymis head measures 0.9 cm x 1.4 cm x 0.8 cm. There is normal vascularity of the epididymis. There is no demonstrated epididymal cystic structure. There is a small hydrocele. There is no demonstrated varicocele. There is no demonstrated extratesticular mass or cyst. US/Testicular with Arterial Flow IMPRESSION: Bilateral hydroceles right greater than left. Increased flow in the right epididymis suggestive of epididymitis. Electronically Signed: Seth James MD at 14:13 EST ,
--- NOTE | 2023-12-06 12:34 | EX.ED.GUMALE ---
HPI History of Present Illness Chief Complaint: Male Pain/Injury Informant: patient and spouse/S.O. Narrative Narrative: Patient presents with right testicular enlargement and mild soreness for about 4 to 5 days. No nausea vomiting. No diarrhea. No abdominal pain. No fevers or chills. No trauma. He denies dysuria or change in color or odor to me. But he states for a long time he tends to urinate a lot and more frequently. He just got out of [facility] within the last 90 days. He was on some unknown medicine while in [facility] to decrease the frequency of his urination but he does not know what it was. He denies any history of diabetes. He denies discharge. It sounds like the patient has had a also a significant weight loss over the last 6 months or a year but this was planned and related to gastric bypass and [facility] food. [facility] Medical History Alcohol abuse HTN (hypertension) Home Medications multivitamin 1 tab PO DAILY #30 tabs 07/30/23 [Rx Last Taken Unknown] doxycycline monohydrate 100 mg capsule 100 mg PO BID #20 CAPSULES 12/06/23 [Rx Last Taken Unknown] Allergy/AdvReac Type Severity Reaction Status Date / Time No Known Allergies Allergy Verified 06/20/23 20:17 Surgical History H/O bariatric surgery H/O gastric bypass Social History Smoking Status: Never smoker Smokeless tobacco user: chewing tobacco alcohol intake: current alcohol intake frequency: 3 or more drinks per day Alcohol type: beer substance use type: does not use ROS ROS ED ROS Narrative A complete review of systems was performed and is negative except as documented in the history of present illness. Some specific details below. Constitutional: No recent fevers or chills. ENT: No difficulty swallowing. No swelling. No pain. No GERD. CV: No chest pain or palpitations. Respiratory: No dyspnea. No hemoptysis. No difficulty taking breaths. GI: Please see history of present illness. : See history of present illness. Musculoskeletal: No recent trauma. No pains including none in his back. Skin: No rash. Nondiaphoretic. Neuro: No weakness or numbness. Endocrine: No polyuria or polydipsia. EXAM Physical Exam Narrative Exam Narrative: CONSTITUTIONAL: Patient is nontoxic in appearance. The patient looks comfortable. HEENT: No notable trauma. Mucous membranes moist. EYES: No icterus CARDIOVASCULAR: Regular rate. Regular rhythm. No notable murmur. No JVD. RESPIRATORY: No respiratory distress. Breathing is unlabored. No wheezes. No rhonchi. No rales. No pain with a deep breath. GASTROINTESTINAL: Not distended. Bowel sounds are normal. No tenderness. No guarding. No rebound. No palpable mass. No bruit. GENITOURINARY: No tenderness over the bladder. No CVA tenderness. No hernia even with standing up and coughing. Patient does have some redundant tissue around the abdomen groin and legs due to the weight loss. Testicle on the right does seem a little larger than the left. It is tender. But appears to have a normal lie. Some of this enlargement may be epididymis. There is no redness. No lesion. No sign of infection at all. MUSCULOSKELETAL: Atraumatic. No notable edema. NEUROLOGICAL: Patient is alert and appropriate. No focal deficit noted. SKIN: No noted rashes. No diaphoresis. PSYCHIATRIC: Patient is calm. Mood is appropriate. Const Vital Signs: 12/06/23 11:46 Temperature 96.1 F L Temperature Source Temporal Pulse Rate 96 Respiratory Rate 18 Blood Pressure 129/76 H Blood Pressure Mean 93 Pulse Ox 98 Oxygen Delivery Method Room Air MDM MDM MDM Narrative Medical decision making narrative: Patient's urine shows no sign of acute abnormalities. Patient's glucose is normal at 71. Patient's ultrasound shows bilateral hydroceles and signs of right epididymitis. Patient will be started on 10 days of Doxy. We will have him follow-up with his primary physician. He has somebody can call but we will give him another option as he is not sure his doctor still practices Lab Data Labs: Laboratory Results - last 24 hr 12/06/23 12/06/23 11:55 12:43 Urine Color Straw Urine Clarity Clear Urine pH 6.5 Ur Specific Drew 1.005 Urine Protein Negative Urine Glucose (UA) Normal Urine Ketones Negative Urine Occult Blood Negative Urine Nitrite Negative Urine Bilirubin Negative Urine Urobilinogen Normal Ur Leukocyte Esterase Negative Urine RBC 0 SEEN Urine WBC 0-5 SEEN Ur Squamous Epith Cells 0-5 SEEN Urine Bacteria RARE Urine Mucus 0 SEEN POC Glucose 71 L Radiography Diagnostic Testing: Clinical Impression(s) from Imaging Studies Testicular Ultrasound 12/06/23 12:33 IMPRESSION: Bilateral hydroceles right greater than left. Increased flow in the right epididymis suggestive of epididymitis. Electronically Signed: Seth James MD at 14:13 EST , Discharge Plan Triage Chief Complaint: Male Pain/Injury ED Provider: Julian Mccormack Dx/Rx/DC Orders Clinical Impression: Acute epididymitis Instructions: ED Epididymitis Prescriptions: New doxycycline monohydrate 100 mg capsule 100 mg PO BID Qty: 20 0RF No Action multivitamin Tablet 1 tab PO DAILY Qty: 30 0RF Primary Care Provider: Care Physician,No Primary Referrals: Chris Pepper MD [Med Staff - [employer] Field Service Technician] - 1 Week if not improving Care Physician,No Primary [Primary Care Provider] - Disposition Disposition: Home, Self Care
[2023-12-06 13:00] LABS: Bedside Glucose 71 mg/dL (74-106)
== END 2023-12-06 15:04 | disposition home or self-care (01) ==
PROVIDERS: Emergency Provider Emergency Medicine; Visit Provider Emergency Medicine
DX: N45.1 Epididymitis (principal); F17.220 Nicotine dependence, chewing tobacco, uncomplicated
CPT/HCPCS: 76870; 81001; 82962; 93976; 99282